=== PATIENT | male | born 2000 | race Caucasian/White ===

== ENCOUNTER 2018-03-23 16:49 | Inpatient (IN) | payer OTHER ==
--- NOTE | 2018-03-23 17:49 | ED ---
Psychiatric Complaint - HPI Summary HPI Summary: Patient is a 17 y/o M w/ c/o SI. He reports having SI for some time but reports worsening of SI over the past 2-3 months. Patient also notes that he has had Hx of SI but not to this extent. He states [place] but went to [facility] at instead. Patient was subsequently sent here. He denies any other medical problems. Patient has PMHx of ADHD, takes adderall as needed. On triage, pain is denied. Home medication and allergies are reviewed. - History Of Current Complaint Chief Complaint: EDMentalHealth Time Seen by Provider: 03/23/18 17:40 Hx Obtained From: Patient Onset/Duration: Lasting Weeks - past 2-3 months, Still Present Timing: Constant Severity Currently: None - pain is denied Character: Depressed Has Suicidal: Reports: Thoughts, With A Plan PMH/Surg Hx/FS Hx/Imm Hx Sensory History: Denies: Hx Legally Blind Opthamlomology History: Denies: Hx Legally Blind Psychiatric History: Reports: Hx Attention Deficit Hyperactivity Disorder Infectious Disease History: No Infectious Disease History: Denies: Traveled Outside the [place] in Last 30 Days - Family History Known Family History: Negative: Blood Disorder Review of Systems Negative: Fever - on vitals, temp is 99.1 F Positive: Depressed, Other - SI All Other Systems Reviewed And Are Negative: Yes Physical Exam - Summary Physical Exam Summary: Appearance: The patient is well-nourished in no acute distress and in no acute pain. Skin: The skin is warm and dry and skin color reflects adequate perfusion. HEENT: The head is normocephalic and atraumatic. The pupils are equal and reactive. The conjunctivae are clear and without drainage. Nares are patent and without drainage. Mouth reveals moist mucous membranes and the throat is without erythema and exudate. The external ears are intact. The ear canals are patent and without drainage. The tympanic membranes are intact. Neck: The neck is supple with full range of motion and non-tender. There are no carotid bruits. There is no neck vein distension. Respiratory: Chest is non-tender. Lungs are clear to auscultation and breath sounds are symmetrical and equal. Cardiovascular: Heart is regular rate and rhythm. There is no murmur or rub auscultated. There is no peripheral edema and pulses are symmetrical and equal. Abdomen: The abdomen is soft and non-tender. There are normal bowel sounds heard in all four quadrants and there is no organomegaly palpated. Musculoskeletal: There is no back tenderness noted. Extremities are non-tender with full range of motion. There is good capillary refill. There is no peripheral edema or calf tenderness elicited. Neurological: Patient is alert and oriented to person, place and time. The patient has symmetrical motor strength in all four extremities. Cranial nerves are grossly intact. Deep tendon reflexes are symmetrical and equal in all four extremities. Psychiatric: The patient has an appropriate affect and does not exhibit any anxiety or depression. Triage Information Reviewed: Yes Vital Signs On Initial Exam: Initial Vitals Temp Pulse Resp BP Pulse Ox 99.1 F 85 16 130/77 97 03/23/18 17:16 03/23/18 17:16 03/23/18 17:16 03/23/18 17:16 03/23/18 17:16 Vital Signs Reviewed: Yes Diagnostics - Vital Signs Vital Signs Temp Pulse Resp BP Pulse Ox 03/23/18 17:16 99.1 F 85 16 130/77 97 - Laboratory Result Diagrams: 03/23/18 18:05 03/23/18 18:05 Lab Statement: Any lab studies that have been ordered have been reviewed, and results considered in the medical decision making process. Re-Evaluation - Re-Evaluation First Eval Re-Evaluation Time: 21:16 Comment: Patient was medically cleared for MHE. Course/Dx - Course Course Of Treatment: Mr. Perkins presented with complaining of depression with suicidal ideation and no plan. He was medically cleared in the emergency department and transported the flex unit for mental health eval. We are currently awaiting those results. - Differential Dx/Clinical Impression Provider Diagnosis: Depression Discharge - Sign-Out/Discharge Documenting (check all that apply): Sign-Out Patient Signing out patient TO: Vicente Tenorio Receiving patient FROM: Vicente Melvin - Discharge Plan Referrals: No Primary Care Phys,NOPCP [Primary Care Provider] - - Attestation Statements Document Initiated by Scribe: Yes Documenting Scribe: Michael Nicolas Provider For Whom Scribe is Documenting (Include Credential): Vicente Melvin MD Scribe Attestation: Michael Menjivar, scribed for Vicente Melvin MD on 03/23/18 at 2217. Scribe Documentation Reviewed: Yes Provider Attestation: The documentation as recorded by the scribe, Michael Nicolas accurately reflects the service I personally performed and the decisions made by me, Vicente Melvin MD
[2018-03-23 18:19] LABS: ABS Basophils 0.1 10^3/ul (0-0.2); ABS Eosinophils 0 10^3/ul (0-0.6); ABS Lymphocytes 1.4 10^3/ul (1.0-4.8); ABS Monocytes 0.7 10^3/ul (0-0.8); ABS Neutrophils 7.4 10^3/ul (1.5-7.7); ABS Nucleated RBC 0 10^3/ul; Eosinophil % 0.3 % (0-6); Hematocrit 44 % (42-52); Hemoglobin 15.5 g/dl (14.0-18.0); Lymphocyte % 14.3 % (25-47); Mean Corpuscular HGB Conc 35 g/dl (31-36); Mean Corpuscular Hemoglobin 31 pg (27-31); Mean Corpuscular Volume 87 fL (80-94); Mean Platelet Volume 7.4 um3 (7.4-10.4); Nucleated Red Blood Cells % 0.1; Platelet Count 281 10^3/ul (150-450); Red Cell Distribution Width 13 % (10.5-15); White Blood Count 9.5 10^3/ul (3.5-10.8)
[2018-03-23 18:36] LABS: Urine Appearance Clear; Urine Blood Negative (Negative); Urine Color Yellow; Urine Ketones 1+ (Negative); Urine Protein Negative (Negative); Urine Specific Gravity 1.012 (1.010-1.030); Urine Urobilinogen Negative (Negative)
[2018-03-23 18:37] LABS: EGFR Non-African American 134.2 (>60)
--- NOTE | 2018-03-24 01:35 | ED ---
Progress - Progress Note Progress Note: The patient is a sign-out from Dr. Vicente Melvin to Dr. Vicente Tenorio at change of shift at 22:00, pending MHE and disposition. He is diagnosed with depression. Patient will be discharged home. He is agreeable with this plan. - Consult/PCP Time Called: 19:38 Re-Evaluation - Re-Evaluation First Eval Re-Evaluation Time: 21:16 Comment: Patient was medically cleared for MHE. Course/Dx - Course Course Of Treatment: Mr. Perkins presented with complaining of depression with suicidal ideation and no plan. He was medically cleared in the emergency department and transported the [facility] for mental health eval. We are currently awaiting those results. - Diagnoses Provider Diagnoses: Depression Discharge - Sign-Out/Discharge Documenting (check all that apply): Patient Departure - Patient will be discharged home., Receiving Sign-Out Signing out patient TO: Vicente Tenorio Receiving patient FROM: Vicente Melvin - Patient is a sign-out from Dr. Melvin at shift change pending MHE. - Discharge Plan Condition: Guarded [place] [place] Disposition and Condition Condition: GUARDED Disposition: Psychiatric Facility [facility] [place] Attestation Statements Document Initiated by Scribe: Yes Documenting Scribe: Ysabel Woodall Provider For Whom Scribe is Documenting (Include Credential): Dr. Vicente Tenorio MD Scribe Attestation: Ysabel Menjivar scribed for Dr. Vicente Tenorio MD on 03/24/18 at 0638. Scribe Documentation Reviewed: Yes Provider Attestation: The documentation as recorded by the Ysabel faith accurately reflects the service I personally performed and the decisions made by me, Dr. Vicente Tenorio MD
[2018-03-24] MEDS ORDERED: Mouth Piece, Nicotine* 1 EACH CARTRIDGE INH SCH (10:20)
[2018-03-24] MEDS ORDERED: Acetaminophen TAB* 325 MG PO PRN (10:20)
[2018-03-24] MEDS ORDERED: Al Hydrox/Mg Hydrox/Simet LIQ* 30 ML UDC PO PRN (10:20)
[2018-03-24] MEDS: Nicotine Inhaler* 10 MG AMP INH PRN (12:53)
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
[2018-03-25] MEDS: Nicotine Inhaler* 10 MG AMP INH PRN ×3 (10:58→21:32)
[2018-03-25] MEDS: Sertraline* 25 MG TAB PO SCH (10:58)
[2018-03-25] MEDS: Vitamin THERAPEUTIC TAB PO SCH (10:58)
[2018-03-25] MEDS: Nicotine GUM* 2 MG PO PRN (21:32)
[2018-03-26] MEDS: Sertraline* 25 MG TAB PO SCH (09:05)
[2018-03-26] MEDS: Vitamin THERAPEUTIC TAB PO SCH (09:05)
[2018-03-26] MEDS: Nicotine GUM* 2 MG PO PRN (11:00)
[2018-03-26] MEDS: Nicotine Inhaler* 10 MG AMP INH PRN (11:00)
--- NOTE | 2018-03-26 13:01 | PN ---
MHU: Group Therapy Note - Service Type Service Type: 18817 Group Psychotherapy - Cognitive Behavioral Group Therapy ( CBT):Patient was attentive and participatory in CBT programming this morning, and remained in good behavioral control. Patient expressed positive insights regarding relevant treatment interventions and goals.
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
[2018-03-26] MEDS ORDERED: Benzocaine (DENTAL) 10%* TOP.GEL PRN (20:35)
[2018-03-27] MEDS: Sertraline* 50 MG TAB PO SCH (09:11)
[2018-03-27] MEDS: Vitamin THERAPEUTIC TAB PO SCH (09:11)
[2018-03-27] MEDS: Nicotine Inhaler* 10 MG AMP INH PRN (09:14)
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
[2018-03-28] MEDS: Nicotine Inhaler* 10 MG AMP INH PRN ×2 (07:22→19:03)
[2018-03-28] MEDS: Vitamin THERAPEUTIC TAB PO SCH (09:14)
[2018-03-28] MEDS: Sertraline* 50 MG TAB PO SCH (09:14)
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
--- NOTE | 2018-03-28 13:13 | PN ---
[facility]: Group Therapy Note - Service Type Service Type: [id number] Group Psychotherapy - Cognitive Behavioral Group Therapy ( CBT):Patient was attentive and participatory in CBT programming this morning, and remained in good behavioral control. Patient expressed positive insights regarding relevant treatment interventions and goals.
[2018-03-29] MEDS: Nicotine Inhaler* 10 MG AMP INH PRN ×2 (08:58→22:40)
[2018-03-29] MEDS: Sertraline* 50 MG TAB PO SCH (08:58)
[2018-03-29] MEDS: Vitamin THERAPEUTIC TAB PO SCH (08:58)
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
[2018-03-30] MEDS: Vitamin THERAPEUTIC TAB PO SCH (08:32)
[2018-03-30] MEDS: Sertraline* 50 MG TAB PO SCH (08:32)
[2018-03-30 08:34] VITALS: BP 112/70
[2018-03-30] MEDS ORDERED: Benzocaine/Menthol LOZ* 1 LOZENGE PO PRN (10:55)
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
== END 2018-03-30 14:40 | disposition home or self-care (01) | DRG 885 ==
LOC: ED 16:49 → BSU 03-24 02:20 → ED 03-24 02:42
PROVIDERS: ADMIT Psychiatry & Neurology Psychiatry; ATTEND Psychiatry & Neurology Psychiatry
PROC: GZHZZZZ Group Psychotherapy (ICD-10-PCS; principal; 2018-03-26)
DX: F33.8 Other recurrent depressive disorders (principal); R45.851 Suicidal ideations; F12.90 Cannabis use, unspecified, uncomplicated; Z91.5 Personal history of self-harm; Z91.410 Personal history of adult physical and sexual abuse; F90.9 Attention-deficit hyperactivity disorder, unspecified type; F43.21 Adjustment disorder with depressed mood
CPT/HCPCS: 36415; 80053; 80307; 80320; 80329; 81003; 84443; 85025; 86703; 90853; 99222; 99231; 99232; 99238; 99285; A9270-GY; G0480